=== PATIENT | male | born 1935 | race Caucasian/White ===

== ENCOUNTER 2016-09-15 02:28 | Inpatient (IN) | payer OTHER, MEDICAID ==
[2016-09-15] MEDS ORDERED: NS 500 ML IV ONE (02:34)
[2016-09-15] MEDS ORDERED: IPRATROPIUM/ALBUTEROL 3 ML DEYVIAL IH ONE (02:38)
--- NOTE | 2016-09-15 02:38 | EDPHY ---
H & P HPI/ROS: HPI CHIEF COMPLAINT: Right hip pain status post mechanical trip and fall HISTORY OF PRESENT ILLNESS: This patient very pleasant 80-year-old male significant past medical history of COPD on oxygen 2 L, hypertension, coronary artery disease, bypass surgery, presents emergency room after he sustained a mechanical trip and fall at [facility]. Patient states he was getting up to use the bathroom he stubbed his toe while walking this caused him to lose his balance and landed on his right hip. He now presents with right lateral hip pain. He is unable to raise his leg up. He describes the pain is 3 /10 right lateral hip achy. He also of note has had a cough that is productive in nature with yellow sputum for the past 3 days. Denies fever chest pain or shortness of breath. Denies head strike. Past Medical History: COPD, coronary artery disease, hypertension, peripheral vascular disease Past Surgical History: CABG Social History: Lives at [facility] Family History: Noncontributory ROS REVIEW OF SYSTEMS: A comprehensive 10 point review of systems is otherwise negative aside from elements mentioned in the history of present illness. Exam Constitutional triage nursing summary reviewed, vital signs reviewed, awake/ alert. Eyes normal conjunctivae and sclera, EOMI, PERRLA. HENT normal inspection, atraumatic, moist mucus membranes, no epistaxis, neck supple/ no meningismus, no raccoon eyes. Respiratory productive sounding cough, normal breath sounds, no respiratory distress Cardiovascular rate normal, regular rhythm, no murmur, no edema, distal pulses normal. Gastrointestinal soft, non-tender, no rebound, no guarding, normal bowel sounds, no distension, no pulsatile mass. Genitourinary no CVA tenderness. Musculoskeletal tender palpation over the right lateral hip, right leg is externally rotated and shortened, unable to lift it off the bed, distally warm extremity, good DP. no midline vertebral tenderness, no calf swelling, no tenderness of extremities, no meningismus, good pulses, neurovascularly intact. Skin pink, warm, & dry, no rash, skin atraumatic. Neurologic awake, alert and oriented x 3, AAOx3, moves all 4 extremities equally, motor intact, sensory intact, CN II-XII intact, normal cerebellar, normal vision, normal speech. Psychiatric normal mood/affect. Heme/Lymph/Immune no lymphadenopathy. Differential Diagnosis: Includes but is not limited to in a particular order right hip fracture, pelvis fracture, femur fracture, COPD, pneumonia, dehydration, electrolyte abnormality Medical Decision Making: Plan for this patient had an IV established. Get a preop screening EKG, blood work including coags, x-ray of the right hip, x-ray of the chest due to productive sounding cough. Patient be given a DuoNeb breathing treatment. Most likely this patient will need to be admitted due to right hip fracture. Re-evaluation: EKG interpretation by me on record in [employer] system. Impression time of EKG 2:47 a.m., this is sinus rhythm, rate of [address] depression seen in V4 V5 V6 otherwise nonischemic EKG. When compared to EKG on 01/10/2013 similar morphology. ED x-ray chest one view: I do not appreciate acute focal pneumonia. Image interpreted by myself ED x-ray: Right hip: this shows intratrochanteric femur fracture. image interpreted by myself. 0301: patient resting comfortably. X-ray reviewed do not appreciate focal pneumonia however COPD appearing lungs. Patient with a wet sounding bronchitic cough. Patient be given a DuoNeb breathing treatment here in the emergency room. IV Levaquin, I have ordered blood cultures. Also Solu-Medrol for wheezing and bronchitic cough. Patient has extensive COPD history. He is on 2 L nasal cannula which is oxygen baseline. Separate issue from COPD exacerbation is he has a right intratrochanteric hip fracture. He will be admitted for the intratrochanteric hip fracture and COPD. I spoke with the hospitalist service agrees to admit the patient. Patient be admitted to PCU. This time I will also consult and orthopedics. 0340: spoke with Dr. Barcenas with Orthopedics he is aware the patient be admitted to the hospitalist service and has most likely a small intertrochanteric right hip fracture. Reason for admission is COPD exacerbation as well as right hip fracture. CT scan is pending of the right hip at this time, To confirm there is a small intratrochanteric hip fracture it is difficult to see on x-ray. CT scan of the hip, right The results of the study are shows intratrochanteric hip fracture. The study was read by Dr. Rojo. I viewed the images myself on the PACS system. Source: Patient, EMS - Medical/Surgical History Hx Asthma: No Hx Chronic Respiratory Disease: Yes Hx Diabetes: No Hx Cardiac Disease: Yes Hx Renal Disease: No Hx Cirrhosis: No Hx Alcoholism: No Hx HIV/AIDS: No Hx Splenectomy or Spleen Trauma: No Other PMH: Ischemic Cardiomyopathy, CAD, HTN, COPD, Bipolar, depression, PVD, Gout, GI bleed, insomnia - Social History Smoking Status: Former smoker Constitutional: Initial Vital Signs Temperature (C) 37.4 C 09/15/16 02:30 Heart Rate 74 09/15/16 02:30 Respiratory Rate 18 09/15/16 02:30 Blood Pressure 149/61 H 09/15/16 02:30 O2 Sat (%) 87 L 09/15/16 02:30 O2 Delivery Mode Room Air O2 (L/minute) 2 Allergies/Adverse Reactions: levofloxacin Allergy (Verified 01/10/13 00:01) CHRISTOPHER [employer] Allergy (Uncoded 01/10/13 00:01) LEAH Allergy (Uncoded 01/10/13 00:01) Home Medications: Medication Instructions Recorded Acetaminophen [Tylenol 325mg (OTC)] 650 mg PO Q4 PRN 01/10/13 Aspirin [Aspirin 81mg (OTC)] 81 mg PO DAILY 01/10/13 Atorvastatin Calcium [Lipitor 40 40 mg PO DAILY 01/10/13 mg (RX)] Carvedilol [Coreg (RX)] 3.125 mg PO BID@08,16 01/10/13 Isosorbide Mononitrate [Imdur 30 30 mg PO DAILY 01/10/13 mg (RX)] Melatonin [Melatonin 3 MG (OTC)] 3 mg PO HS 01/10/13 Multivitamins [Tab-A-Aleksander] 1 each PO DAILY 01/10/13 Pantoprazole Sodium [Protonix 40mg 40 mg PO DAILY@1600 01/10/13 (RX)] QUETIAPINE FUMARATE [Seroquel Xr] 300 mg PO HS 01/10/13 Sertraline HCl [Zoloft] 25 mg PO DAILY 01/10/13 Furosemide [Lasix 20 MG (RX)] 20 mg PO DAILY 01/15/13 Hydrocodone Bit/Acetaminophen 1 tab PO Q6 PRN 01/17/13 [Vicodin 5/500] Oxygen-Air Delivery Systems HS 01/20/13 [OXYGEN] Valacyclovir HCl [Valtrex] 1,000 mg PO TID #21 tab 04/23/16 Clopidogrel Bisulfate [Plavix] mg PO 09/15/16 Medical Decision Making - Data Points Laboratory Results: Laboratory Results 09/15/16 02:35 09/15/16 02:35 09/15/16 09/15/16 09/15/16 02:35 02:35 02:35 WBC RBC Hgb Hct MCV MCH MCHC RDW Plt Count MPV Neut % (Auto) Lymph % (Auto) Mcleod % (Auto) Eos % (Auto) Baso % (Auto) Nucleat RBC Rel Count Absolute Neuts (auto) Absolute Lymphs (auto) Absolute Monos (auto) Absolute Eos (auto) Absolute Basos (auto) Absolute Nucleated RBC Immature Gran % Immature Gran # PT 15.0 SEC SEC (12.0-15.0) INR 1.18 H (0.83-1.16) APTT 32.0 SEC SEC (23.0-38.0) Sodium 137 mEq/L mEq/L (134-144) Potassium 3.2 mEq/L L mEq/L (3.5-5.2) Chloride 105 mEq/L mEq/L (97-110) Carbon Dioxide 18 mEq/l L mEq/l (22-31) Anion Gap 14 mEq/L mEq/L (8-16) BUN 31 mg/dL H mg/dL (7-23) Creatinine 1.6 mg/dL H mg/dL (0.7-1.3) Estimated GFR 42 Glucose 120 mg/dL H mg/dL (70-100) Calcium 8.8 mg/dL mg/dL (8.5-10.4) Troponin I 0.087 ng/mL H ng/mL (0-0.034) 09/15/16 02:35 WBC 10.24 10^3/uL H 10^3/uL (3.80-9.50) RBC 4.08 10^6/uL L 10^6/uL (4.40-6.38) Hgb 12.9 g/dL L g/dL (13.7-17.5) Hct 36.8 % L % (40.0-51.0) MCV 90.2 fL fL (81.5-99.8) MCH 31.6 pg pg (27.9-34.1) MCHC 35.1 g/dL g/dL (32.4-36.7) RDW 13.9 % % (11.5-15.2) Plt Count 223 10^3/uL 10^3/uL (150-400) MPV 9.7 fL fL (8.7-11.7) Neut % (Auto) 81.7 % H % (39.3-74.2) Lymph % (Auto) 8.5 % L % (15.0-45.0) Mcleod % (Auto) 8.5 % % (4.5-13.0) Eos % (Auto) 0.2 % L % (0.6-7.6) Baso % (Auto) 0.3 % % (0.3-1.7) Nucleat RBC Rel Count 0.0 % % (0.0-0.2) Absolute Neuts (auto) 8.37 10^3/uL H 10^3/uL (1.70-6.50) Absolute Lymphs (auto) 0.87 10^3/uL L 10^3/uL (1.00-3.00) Absolute Monos (auto) 0.87 10^3/uL H 10^3/uL (0.30-0.80) Absolute Eos (auto) 0.02 10^3/uL L 10^3/uL (0.03-0.40) Absolute Basos (auto) 0.03 10^3/uL 10^3/uL (0.02-0.10) Absolute Nucleated RBC 0.00 10^3/uL 10^3/uL (0-0.01) Immature Gran % 0.8 % % (0.0-1.1) Immature Gran # 0.08 10^3/uL 10^3/uL (0.00-0.10) PT INR APTT Sodium Potassium Chloride Carbon Dioxide Anion Gap BUN Creatinine Estimated GFR Glucose Calcium Troponin I Medications Given: Discontinued Medications Albuterol/Ipratropium (Duoneb) 3 ml IH EDNOW ONE Stop: 09/15/16 02:39 Last Admin: 09/15/16 03:10 Dose: 3 ml Sodium Chloride (Ns) 500 mls @ 0 mls/hr IV ONCE ONE PRN Reason: As Directed Stop: 09/15/16 02:35 Last Admin: 03/10/17 02:50 Dose: 500 mls Levofloxacin/Dextrose (Levaquin 750 Mg (Premix)) 150 mls @ 100 mls/hr IV EDNOW ONE PRN Reason: Protocol Stop: 09/15/16 04:29 Last Admin: 09/15/16 03:56 Dose: Not Given Ceftriaxone Sodium/Dextrose (Rocephin 1 Gm (Premix)) 50 mls @ 100 mls/hr IV EDNOW ONE PRN Reason: Protocol Stop: 09/15/16 04:15 Last Admin: 09/15/16 03:59 Dose: 50 mls Methylprednisolone Sodium Succinate (Solu-Medrol) 125 mg IVP EDNOW ONE Stop: 09/15/16 03:01 Last Admin: 09/15/16 03:45 Dose: 125 mg Departure - Departure Disposition: [facility] Inpatient Acute Clinical Impression: COPD exacerbation Hip fracture Qualifiers: Encounter type: initial encounter Fracture type: closed Laterality: right Qualified Code(s): S72.001A - Fracture of unspecified part of neck of right femur, initial encounter for closed fracture Condition: Fair
[2016-09-15 02:44] LABS: % IMMATURE GRANULYOCYTES 0.8 % (0.0-1.1); ABSOLUTE IMMATURE GRANULOCYTES 0.08 10^3/uL (0.00-0.10); ADD DIFF? NO; ADD MORPH? NO; ADD SCAN? NO; ATYPICAL LYMPHOCYTE FLAG 0 (0-99); FRAGMENT RBC FLAG 0 (0-99); HEMATOCRIT 36.8 % (40.0-51.0); HEMOGLOBIN 12.9 g/dL (13.7-17.5); LEFT SHIFT FLG 10 (0-99); LIPEMIA HEMOLYSIS FLAG 90 (0-99); MEAN CELL HEMOGLOBIN 31.6 pg (27.9-34.1); MEAN CELL HEMOGLOBIN CONCENTR. 35.1 g/dL (32.4-36.7); MEAN CELL VOLUME 90.2 fL (81.5-99.8); MEAN PLATELET VOLUME 9.7 fL (8.7-11.7); PLATELET CLUMPS FLAG 0 (0-99); PLATELET COUNT 223 10^3/uL (150-400); RED BLOOD CELL COUNT 4.08 10^6/uL (4.40-6.38); RED CELL DISTRIBUTION WIDTH 13.9 % (11.5-15.2)
--- NOTE | 2016-09-15 02:50 | CPEKG ---
Heart Rate: 69 RR Interval: 870 P-R Interval: 164 QRSD Interval: 106 QT Interval: 424 QTC Interval: 455 P [place]: 79 QRS [place]: 62 T Wave [place]: 47 EKG Severity - ABNORMAL ECG - EKG Impression: SINUS RHYTHM EKG Impression: LEFT ATRIAL ABNORMALITY EKG Impression: BORDERLINE ST DEPRESSION, LATERAL LEADS Preliminary Awaiting MD Review
[2016-09-15 02:53] LABS: INR 1.18 (0.83-1.16)
[2016-09-15 02:55] LABS: ANION GAP 14 mEq/L (8-16); CALCIUM 8.8 mg/dL (8.5-10.4); CARBON DIOXIDE 18 mEq/l (22-31); CHLORIDE 105 mEq/L (97-110); CREATININE 1.6 mg/dL (0.7-1.3); GLOMERULAR FILTRATION RATE 42; GLUCOSE 120 mg/dL (70-100); POTASSIUM 3.2 mEq/L (3.5-5.2); SODIUM 137 mEq/L (134-144)
[2016-09-15] MEDS ORDERED: methylPREDNISolone SOD SUCC 125 MG/2 ML VIAL IVP ONE (03:00)
[2016-09-15] MEDS ORDERED: PROMETHAZINE HCL 25 MG TAB PO PRN (03:14)
[2016-09-15] MEDS ORDERED: ALBUTEROL 3 ML DEYVIAL IH PRN (03:14)
[2016-09-15] MEDS ORDERED: HYDROmorphONE/DILAUDID 1 MG/ML SYR IVP PRN (03:14)
[2016-09-15] MEDS ORDERED: ONDANSETRON 4 MG/2 ML VIAL IVP PRN (03:14)
[2016-09-15] MEDS ORDERED: ONDANSETRON DISINTEGRATING 4 MG TAB PO PRN (03:14)
[2016-09-15] MEDS ORDERED: NS 1,000 ML IV SCH (03:15)
[2016-09-15 03:18] LABS: TROPONIN I 0.087 ng/mL (0-0.034)
[2016-09-15] MEDS ORDERED: PROTOCOL POTASSIUM 1 DOSE MISC PRN (03:19)
[2016-09-15] MEDS ORDERED: PROTOCOL MAGNESIUM 1 DOSE IV PRN (03:19)
[2016-09-15] MEDS ORDERED: AZITHROMYCIN IV 500 MG in D5W 250 ML IV ONE (03:46)
[2016-09-15] MEDS ORDERED: IPRATROPIUM/ALBUTEROL 3 ML DEYVIAL ONE (06:10)
[2016-09-15] MEDS: IPRATROPIUM/ALBUTEROL 3 ML DEYVIAL IH SCH ×4 (06:12→20:39)
[2016-09-15 06:18] LABS: % IMMATURE GRANULYOCYTES 0.7 % (0.0-1.1); ABSOLUTE IMMATURE GRANULOCYTES 0.06 10^3/uL (0.00-0.10); ADD DIFF? NO; ADD MORPH? NO; ADD SCAN? NO; ATYPICAL LYMPHOCYTE FLAG 0 (0-99); FRAGMENT RBC FLAG 0 (0-99); HEMATOCRIT 33.7 % (40.0-51.0); HEMOGLOBIN 11.7 g/dL (13.7-17.5); LEFT SHIFT FLG 20 (0-99); LIPEMIA HEMOLYSIS FLAG 90 (0-99); MEAN CELL HEMOGLOBIN 31.3 pg (27.9-34.1); MEAN CELL HEMOGLOBIN CONCENTR. 34.7 g/dL (32.4-36.7); MEAN CELL VOLUME 90.1 fL (81.5-99.8); MEAN PLATELET VOLUME 9.7 fL (8.7-11.7); PLATELET CLUMPS FLAG 10 (0-99); PLATELET COUNT 209 10^3/uL (150-400); RED BLOOD CELL COUNT 3.74 10^6/uL (4.40-6.38); RED CELL DISTRIBUTION WIDTH 13.7 % (11.5-15.2)
--- NOTE | 2016-09-15 06:19 | GHP ---
[f rep st] HISTORY AND PHYSICAL DATE OF ADMISSION: 09/15/2016 CHIEF COMPLAINT: Fall with right hip pain. HISTORY: This is an 80-year-old man, who was brought in by ambulance after suffering a mechanical f all at home. He notes that he stubbed his toe, then proceeded to fall, and landed on his right hip. Pain began immediately thereafter to the point where he is really unable to move his right leg. W hen he does not move the leg at all, the pain is much more mild. The patient otherwise notes that chloe sanchez has been dealing with a cough for the last 2-3 days. He notes the cough is also associated with s hortness of breath with even minimal exertion. He states when he coughs, he sometimes gets up what appears to be a milky colored sputum. He has had fevers as recently as yesterday. He denies any ch est pain or palpitations. He denies any leg swelling or pain prior to his injury. He has not been on oxygen at home for quite some time. He denies any issues with laying flat and denies any symptom s of PND. PAST MEDICAL HISTORY: Includes: 1. Coronary artery disease and history of NSTEMI. CHF with a prior ejection fraction of 40% to 45% . Unknown ejection fraction currently. 2. Valvular heart disease with moderate to severe MR, mild to moderate TR, and moderate pulmonary h ypertension. 3. COPD. 4. Chronic kidney disease with most recent baseline creatinine close to 1.8. 5. Hypertension. 6. Hyperlipidemia. 7. Peripheral vascular disease. 8. History of upper GI bleed. 9. Tophaceous gout. 10. History of DVT and PE. 11. Bipolar disorder. PAST SURGICAL HISTORY: Includes: 1. Three-vessel CABG. 2. Knee replacement. 3. Fem-fem bypass. SOCIAL HISTORY: The patient has been living in assisted living. He has a greater than 50 pack year smoking history and quit in 2012. He has 2 daughters. Denies significant alcohol use. No drug us e. REVIEW OF SYSTEMS: A 10-point review of systems obtained, negative except as per HPI. MEDICATIONS: Include: 1. Valacyclovir. 2. Sertraline. 3. Quetiapine. 4. Protonix. 5. Multivitamin. 6. Melatonin. 7. Imdur. 8. Vicodin. 9. Lasix. 10. Plavix. 11. Coreg. 12. Atorvastatin. 13. Aspirin. 14. Tylenol. ALLERGIES: Levaquin. PHYSICAL EXAMINATION: VITAL SIGNS: BP 156/78, heart rate 75, respiratory rate 16, O2 sats 93% on 2 L, temperature is 37.4. GENERAL APPEARANCE: Well-developed/well-nourished man. He is awake and a lert. He is in mild distress. EYES: Anicteric. HENT: Oropharynx clear. CARDIOVASCULAR: RRR, n o MRG. PULMONARY: Normal work of breathing. Lungs are clear to auscultation to anterior exam, but does have a wet cough present. GI: Soft, nontender, nondistended. EXTREMITIES: His right leg is externally rotated and shortened. He has inability to lift it off the bed likely secondary to pain . Pulses are intact and sensation is intact. SKIN: Warm, dry, well perfused. NEURO/PSYCH: Orien rajendra, appropriate, pleasant. CLINICAL DATA: Labs reviewed. Significant for white blood cell count 10.2, hematocrit 36.8, platel ets of 223, INR is 1.1. Chemistry is notable for a potassium of 3.2, BUN of 31, creatinine 1.6, glu cose 120, initial troponin is 0.087. Pelvic CT personally reviewed and interpreted shows an intertrochanteric fracture with foreshortenin g and anterior apex angulation. EKG personally reviewed and interpreted shows sinus rhythm. Borderline ST depressions noted in V4, V5, V6, fairly similar to prior EKG. Chest x-ray, personally reviewed and interpreted ahead of radiology interpretation : Heart size shira ears normal. There is evidence of prior sternal sternotomy, suspect mild pulmonary edema, and left lower lobe infiltrate. ASSESSMENT AND PLAN: This is an 80-year-old man with multiple medical issues including coronary art inge disease, congestive heart failure, chronic kidney disease, presenting status post mechanical fal l with intertrochanteric femur fracture, as well as acute hypoxic respiratory failure, and suspected pneumonia. 1. Intertrochanteric femur fracture. Orthopedic surgery has been consulted. The patient likely wi ll need surgical intervention though he does have other active medical issues currently, so if surge ry could be delayed for 24-48 hours to improve his pulmonary status, that would be preferable. We a re currently awaiting ortho input. Patient n.p.o. for now. His pain is relatively well controlled on current regimen. He will be kept nonweightbearing for now. 2. Acute hypoxic respiratory failure. The patient saturating initially 87% on room air though he i s currently improved on 2 L. The patient states that he has not required home oxygen since immediat todd post his CABG in 2012. He has been complaining of cough and does have a suggestion of possible left lower lobe infiltrate on chest x-ray by my read. Also, with chronic obstructive pulmonary dise ase, there is suspicion for some acute chronic obstructive pulmonary disease exacerbation. I do not have high suspicion for other etiology contributing such as pulmonary embolism. Certainly could ledezma ve some component of congestive heart failure exacerbation, however, which will be discussed below, as well. 3. Pneumonia. Evidence of likely left lower lobe pneumonia on chest x-ray. Again, Pulmonology pretty d is pending. He has had a significant cough with change in his usual sputum production with associ ated leukocytosis and fever at home. He has been started on ceftriaxone and azithromycin in the ER and will continue for now. Blood cultures have been obtained. The patient is not septic appearing and is hemodynamically stable. 4. Chronic obstructive pulmonary disease with acute exacerbation in the setting of suspected pneumo zaynab as above. He does have poor air movement, and occasional wheeze. Will schedule DuoNeb, as well as p.r.n. albuterol nebs. He has received IV methylprednisolone x1 in the emergency room and we wi ll hold off on further steroids for now given the likely need for surgical intervention in the near future. Should his respiratory status decline, however, these will be added. 5. Chronic, likely diastolic heart failure. Patient with a previous ejection fraction of 40% to 45 %, but repeat echo post CABG is not currently available to me. He does have some suggestion of leon estive heart failure exacerbation on exam with pulmonary edema noted on chest x-ray. We will monito r inputs and outputs for now. Will hold off on Lasix for the time being as I think volume overload is only mildly contributing to his current presentation and he does have BUN elevation beyond his us ual level at this point. We will repeat an echocardiogram in the morning for further evaluation. 6. Chronic kidney disease. Last labs available to me were in 2012 around the time of patient's CAB G. At that time, his baseline creatinine was around 1.8 to 2. He presents with a creatinine of 1.6 , which is likely near his current baseline, though not 100% certain of that. He appears for the mo st part euvolemic on exam. Will hold off on diuresis for the time being, trending his creatinine. I will attempt to obtain more recent labs from outpatient records. 7. Elevated troponin in the indeterminate range and without complaints of chest pain or clear ische rhonda changes on EKG. He does have perhaps slightly more pronounced ST depressions on his EKG, but th justice remain minimal and unclear if they are clinically significant. I will also get a repeat EKG. 8. Other prior medical problems that include peripheral vascular disease, history of gastrointestin al bleed, hypertension, hyperlipidemia, gout, history of deep venous thrombosis/pulmonary embolism, history of bipolar, outpatient medications will be continued. DISPOSITION: Inpatient status. Patient has multiple active comorbid conditions placing him at high risk and will require surgical intervention, but also in the setting of his other active medical is sues place him at high risk for surgical complications. The patient is new to my care. Old records reviewed, summarized as per HPI, and past medical histor y. Care plan has been reviewed with the ER physician including plans for orthopedic consultation an d treatment of pneumonia. /[id number]/MODL
[2016-09-15 06:45] LABS: ANION GAP 10 mEq/L (8-16); CALCIUM 8.2 mg/dL (8.5-10.4); CARBON DIOXIDE 19 mEq/l (22-31); CHLORIDE 107 mEq/L (97-110); CREATININE 1.4 mg/dL (0.7-1.3); GLOMERULAR FILTRATION RATE 49; GLUCOSE 155 mg/dL (70-100); POTASSIUM 3.1 mEq/L (3.5-5.2); SODIUM 136 mEq/L (134-144)
--- NOTE | 2016-09-15 09:01 | CPEKG ---
Heart Rate: 62 RR Interval: 968 P-R Interval: 188 QRSD Interval: 106 QT Interval: 464 QTC Interval: 472 P [place]: 71 QRS [place]: 54 T Wave [place]: 74 EKG Severity - NORMAL ECG - EKG Impression: SINUS RHYTHM Preliminary Awaiting MD Review
[2016-09-15] MEDS: POTASSIUM Cl (KCl) 100 ML IV SCH ×4 (09:22→13:56)
[2016-09-15] MEDS ORDERED: CEFTRIAXONE 1 GM/DEXTROSE/50 ML BAG IV ONE (09:36)
[2016-09-15 13:31] LABS: COLOR YELLOW; LEUKOCYTE ESTERASE,URINE NEGATIVE (NEGATIVE); NITRITE,URINE NEGATIVE (NEGATIVE)
[2016-09-15] MEDS ORDERED: ACETAMINOPHEN PO PRN (13:33)
[2016-09-15] MEDS ORDERED: HYDROCODONE BIT PO PRN (13:33)
[2016-09-15 13:35] LABS: BACTERIA TRACE /hpf (NONE SEEN)
--- NOTE | 2016-09-15 13:41 | HOSPPROG ---
Hospitalist Progress Note Assessment/Plan: # R hip fx - needs operative fixation despite significant comorbidities and marginal functional status - would like to see echo prior to surgery - cont BB through surgery # dyspnea/possible pna/hypoxia - agree with tx for pna - rocephin/azith, BDs - PE seems less likely # CHF, last EF 45%; compensated - cont coreg, no edwin with CKD - recheck echo # CAD s/p cabg; indet trop - doubt acs, likely demand - hold plavix, restart soon - cont statin, BB # hypoK - replete, recheck # CKD - at baseline # gout - allopurinol # FCFT # vte ppx - will need post-op ## new pt to me cxr personally reviewed, chart reviewed Subjective: ongoing hip pain Objective: Vital Signs Temp Pulse Resp BP Pulse Ox 36.6 C 62 18 128/57 H 93 09/15/16 10:51 09/15/16 10:51 09/15/16 10:51 09/15/16 10:51 09/15/16 10:51 Laboratory Results 09/15/16 06:00 09/15/16 06:00 09/14/16 09/15/16 09/16/16 05:59 05:59 05:59 Output Total 900 Balance -900 PT 15.0 SEC (12.0-15.0) 09/15/16 02:35 INR 1.18 (0.83-1.16) H 09/15/16 02:35 - Physical Exam Constitutional: no apparent distress, appears nourished Cardiovascular: regular rate and rhythym, no murmur, rub, or gallop Respiratory: no respiratory distress, no rales or rhonchi, clear to auscultation Gastrointestinal: normoactive bowel sounds, soft, non-tender abdomen, no palpable masses ICD10 Worksheet Patient Problems: Problems Problem Status Onset CHF - Congestive heart failure Active COPD exacerbation Acute Hip fracture Acute
[2016-09-15 13:51] LABS: POTASSIUM 3.9 mEq/L (3.5-5.2)
--- NOTE | 2016-09-15 14:00 | ECHO ---
[id number] + + [address] : : [place] [address] : : [phone] + Adult Echocardiographic Report + -------+ :Name: VIRAL VICTORIA JStudy Date: 09/15/2016 08:41 AM : : Hospital Admission Number: [id number] Enoch n: ER12: :: 1935 Gender: Male Height: 70 in : :Age: 80 yrs Race: WH Weight: 163 lb : :Reason For Study: Eval LV Fx : : BSA: 1.9 meters 2 : :History: SOB, Hx of CABG : + -------+ MMode/2D Measurements \T\ Calculations IVSd: 0.91 cm LVIDd: 4.7 cm FS: 35.4 % MV Diam: 3.1 cm LVPWd: 1.2 cm LVIDs: 3.1 cm EDV(Teich): 104.4 ml ESV(Teich): 36.7 ml EF(Teich): 64.8 % Ao root diam: 3.4 cm LVOT diam: 2.1 cm ACS: 2.3 cm LVOT area: 3.5 cm2 Normal Measurement Values: + + :LVIDd (3.5-5.7cm) IVSd (0.6-1.1cm) LVPWd (0.6-1.1cm) Aortic Root (2.0-3.7cm)Left Atrium (1.5-4.0cm): :LV Vol(d) (76-115ml) LV Vol(s) (29-48ml) Ejec Fraction (50-65%)PV Umang (0.6- 1.2m/s) TV Umang (0.4-1.0m/s) : :MV E Umang (0.8-1.0m/s)MV A Umang (0.3-1.0m/s)LVOT Umang (0.7-1.2m/s) Asc Ao Umang ( 0.9-1.8m/s) : + + Doppler Measurements \T\ Calculations MV E max umang: MV V2 max: Ao V2 max: LV V1 max: 120.0 cm/sec 150.0 cm/sec 121.0 cm/sec 65.4 cm/sec MV A max umang: MV max P.0 mmHg Ao max P.9 mmHgLV V1 max P.8 cm/sec MV V2 mean: Ao mean P.7 mmHg MV E/A: 1.3 74.7 cm/sec 4.0 mmHg LV V1 mean PG: MV mean P.0 mmHg Ao V2 mean: 1.0 mmHg MV V2 VTI: 46.5 cm 97.2 cm/sec LV V1 mean: MV area (1 diam): Ao V2 VTI: 31.1 cm 49.3 cm/sec LV V1 VTI: 7.5 cm2 WILLY(I,D): 2.3 cm2 20.8 cm MVA(VTI): 1.5 cm2 WILLY(V,D): 1.9 cm2 MV Flow area(1diam): 7.5 cm2 MR max umnag: MR(RF 1 diam): SV(MV 1 diam): PA V2 max: 544.0 cm/sec 12.1 % 351.0 ml 61.1 cm/sec MR max PG: SI(MV 1 diam): PA max P.4 mmHg 1.5 mmHg 183.4 ml/m2 SV(LVOT): 72.0 ml TR max umang: RF(MV,Ao)(1 diam): 269.0 cm/sec 0.20 TR max PG: RF(MV,LVOT)(1diam): 28.9 mmHg 0.79 RAP systole: 5.0 mmHg RVSP(TR): 33.9 mmHg Left Ventricle The left ventricle is normal in size. There is normal left ventricular wall thickness. The left ventricular ejection fraction is normal. There is Doppler evidence for diastolic dysfunction. Ejection Fraction = 65%. The left ventricular wall motion is normal. Right Ventricle The right ventricle is normal in size and function. Atria The left atrial size is normal. Right atrial size is normal. Mitral Valve The mitral valve is normal in structure and function. There is no mitral valve stenosis. There is mild to moderate mitral regurgitation. Tricuspid Valve Normal tricuspid valve. There is trace to mild tricuspid regurgitation. Right ventricular systolic pressure is normal. Aortic Valve The aortic valve is trileaflet. The aortic valve opens well. There is no aortic stenosis. There is no aortic insufficiency. Pulmonic Valve The pulmonic valve is normal in structure and function. There is no pulmonic valvular regurgitation. Great Vessels The aortic root is normal size. Pericardium/Pleural There is no pericardial effusion. Conclusion A complete two-dimensional transthoracic echocardiogram was performed (2D, M-mode, Doppler and color flow Doppler). The left ventricular ejection fraction is normal. There is Doppler evidence for diastolic dysfunction. Ejection Fraction = 65%. The left ventricular wall motion is normal. The right ventricle is normal in size and function. The mitral valve is normal in structure and function. There is mild to moderate mitral regurgitation. Normal tricuspid valve There is trace to mild tricuspid regurgitation. Right ventricular systolic pressure is normal. The aortic valve is trileaflet. The aortic valve opens well. The pulmonic valve is normal in structure and function. There is no pericardial effusion. Final Reading Physician: Raman Prado signed on 09/15/2016 01:58 PM Ordering Physician: Génesis Nesbitt Performed By: Gerson Singh, CS
[2016-09-15] MEDS ORDERED: HYDROCODONE/APAP 5/325 TAB PO PRN (15:16)
[2016-09-15] MEDS ORDERED: ceFAZolin 2 GM/DEXTROSE 100 ML IV ONE (17:05)
[2016-09-15] MEDS ORDERED: MIDAZOLAM 2 MG/2 ML VIAL ONE (17:23)
[2016-09-15] MEDS ORDERED: DEXAMETHASONE 4 MG/ML VIAL ONE (17:29)
[2016-09-15] MEDS ORDERED: LIDOCAINE 2% 100 MG/5 ML SYR ONE (17:29)
[2016-09-15] MEDS ORDERED: ONDANSETRON 4 MG/2 ML VIAL ONE (17:29)
[2016-09-15] MEDS ORDERED: fentaNYL 100 MCG/2 ML INJ ONE (17:30)
[2016-09-15] MEDS ORDERED: PROPOFOL 200 MG/20 ML VIAL ONE (17:32)
[2016-09-15] MEDS ORDERED: BUPIVACAINE 0.5% 30 ML SDV ONE (17:41)
--- NOTE | 2016-09-15 18:37 | GCON ---
[f rep st] CONSULTATION ORTHOPEDIC CONSULTATION. REASON FOR CONSULTATION: Consultation from the emergency department and hospitalist service, Dr. Pola Nesbitt, for evaluation of a right IT femur fracture. HISTORY OF PRESENT ILLNESS: 80-year-old gentleman who sustained a mechanical fall early this gretchen g. Was unable to bear weight. Brought into the emergency room. Evaluated. Found to have a right intertrochanteric femur fracture. The patient was admitted to the hospitalist service. He has a tr oponin leak. He is complaining of shortness of breath. He appears to have an early form of pneumon ia. PAST MEDICAL HISTORY: Includes coronary artery disease, congestive heart failure, valvular heart di sease, COPD, chronic kidney disease, hypertension, hyperlipidemia, peripheral vascular disease, hist ory of GI bleed, tophaceous gout, history of DVT and PE, bipolar disorder. PAST SURGICAL HISTORY: Includes CABG, knee replacement, fem-fem bypass as well as left DHS. SOCIAL HISTORY: Patient lives in assisted living. He is a big smoker who quit in the last couple o f years. PHYSICAL EXAMINATION: GENERAL: Patient is in no acute distress. EXTREMITIES EXAM: The right lowe r extremity is examined. It is held short and flexed, externally rotated. He is neurovascularly in tact. LAB DATA: X-rays reviewed which show the mildly displaced right intertrochanteric femur fracture. ASSESSMENT AND PLAN: The patient is an 80-year-old gentleman with a right intertrochanteric femur f racture. Discussed operative and nonoperative interventions with the patient. Recommended procedur e is operative intervention and operative fixation. Risks and benefits were discussed with the dandy ent and informed consent was obtained. Plan will be to proceed with this as soon as the patient is cleared from the medicine service. /[id number]/MODL
[2016-09-15] MEDS ORDERED: D5W 1/2 NS W/ 20 KCl/L 1,000 ML IV SCH (18:45)
--- NOTE | 2016-09-15 18:47 | POSTOPPROG ---
Post Op Note Date of Operation: 09/15/16 Surgeon: Zachary Bracenas Anesthesiologist: Zehra Anesthesia: GET(General Endotracheal) Pre-op Diagnosis: R IT femur fx Post-op Diagnosis: same Indication: displaced IT fx R femur Procedure: R TFN femur Findings: IT fx Inf/Abcess present in the surg proc area at time of surgery?: No EBL: 50-100
--- NOTE | 2016-09-15 19:52 | GOP ---
[f rep st] OPERATIVE REPORT DATE OF OPERATION: 09/15/2016 SURGEON: Miya Barcenas MD DIRECTOR ACCOUNT MANAGEMENT: None. ANESTHESIA: General. PREOPERATIVE DIAGNOSIS: Right intertrochanteric femur fracture. POSTOPERATIVE DIAGNOSIS: Right intertrochanteric femur fracture. PROCEDURE PERFORMED: FINDINGS: DESCRIPTION OF PROCEDURE: The patient was identified in the preoperative holding area. The lower e xtremity was marked. He was then brought back to the operating room. After induction of anesthesia , he was positioned on the fracture table. The patient was then prepped and draped in the usual mat rile fashion. C-arm fluoroscopy was used to get firm reduction. A guidewire was placed in the tip of the greater trochanter, confirmed on AP and lateral C-arm fluoroscopy. This was reamed. An 11 m m short Synthes TFN nail was placed. A guidepin was then run up center-center to the femoral head a nd it measured 100 mm. We then placed a 100 mm helical screw without difficulty. Placed a 38 mm di stal cross-lock. Patient's incisions were copiously irrigated and closed in layers. The patient wa s awakened and moved to the PACU in good condition with a well-perfused limb. The plan is to make the patient weightbearing as tolerated. PROCEDURE: Right trochanteric femoral nail, short, to the right femur. INDICATIONS FOR PROCEDURE: The patient is an 80-year-old gentleman who sustained a right displaced intertrochanteric femur fracture. Risks and benefits were explained to the patient. Informed conse nt was obtained. /[id number]/MODL
[2016-09-15] MEDS ORDERED: QUETIAPINE FUMARATE 300 MG PO SCH (21:00)
[2016-09-15] MEDS: QUEtiapine FUMARATE 300 MG TAB PO SCH (21:56)
[2016-09-15] MEDS: MELATONIN 3 MG TAB PO SCH (21:56)
[2016-09-15] MEDS: CARVEDILOL 6.25 MG TAB PO SCH (21:56)
[2016-09-16 05:13] LABS: % IMMATURE GRANULYOCYTES 0.9 % (0.0-1.1); ADD DIFF? NO; ADD MORPH? NO; ADD SCAN? NO; ATYPICAL LYMPHOCYTE FLAG 10 (0-99); FRAGMENT RBC FLAG 0 (0-99); HEMATOCRIT 35.5 % (40.0-51.0); LEFT SHIFT FLG 10 (0-99); LIPEMIA HEMOLYSIS FLAG 90 (0-99); MEAN CELL HEMOGLOBIN 30.8 pg (27.9-34.1); MEAN CELL HEMOGLOBIN CONCENTR. 33.8 g/dL (32.4-36.7); MEAN PLATELET VOLUME 10.1 fL (8.7-11.7); PLATELET CLUMPS FLAG 0 (0-99); PLATELET COUNT 239 10^3/uL (150-400); RED CELL DISTRIBUTION WIDTH 13.7 % (11.5-15.2)
[2016-09-16] MEDS: IPRATROPIUM/ALBUTEROL 3 ML DEYVIAL IH SCH ×4 (05:14→21:03)
[2016-09-16 05:27] LABS: ANION GAP 11 mEq/L (8-16); CALCIUM 8.4 mg/dL (8.5-10.4); CARBON DIOXIDE 17 mEq/l (22-31); CHLORIDE 111 mEq/L (97-110); CREATININE 1.1 mg/dL (0.7-1.3); GLOMERULAR FILTRATION RATE > 60; GLUCOSE 171 mg/dL (70-100); MAGNESIUM 2.2 mg/dL (1.6-2.3); POTASSIUM 3.8 mEq/L (3.5-5.2); SODIUM 139 mEq/L (134-144)
[2016-09-16] MEDS ORDERED: AZITHROMYCIN IV 500 MG in D5W 250 ML IV SCH ×2 (06:00→09:00)
[2016-09-16] MEDS: AZITHROMYCIN IV 500 MG in D5W 250 ML IV SCH (06:25)
[2016-09-16] MEDS: ATORVASTATIN CALCIUM 20 MG TAB PO SCH (09:02)
[2016-09-16] MEDS: SERTRALINE HCL 25 MG TAB PO SCH (09:03)
[2016-09-16] MEDS: ENOXAPARIN 40 MG/0.4 ML SYR SC SCH ×2 (09:03→10:16)
[2016-09-16] MEDS: ALLOPURINOL 100 MG TAB PO SCH (09:03)
[2016-09-16] MEDS: CARVEDILOL 6.25 MG TAB PO SCH ×2 (10:15→18:17)
--- NOTE | 2016-09-16 10:22 | HOSPPROG ---
Hospitalist Progress Note Assessment/Plan: # R hip fx s/p ORIF 09/15 Dr Barcenas # dyspnea/possible pna/hypoxia - repeat CXR today - cont rocephin/azith, BDs - PE seems less likely # CHF, last EF 45%; compensated - cont coreg, no edwin with CKD # CAD s/p cabg; indet trop - doubt acs, likely demand - plavix restarted - cont statin, BB # hypoK - resolved # CKD - at baseline # gout - allopurinol # FCFT # vte ppx - hold lovenox, will use plavix which seems reasonable ## op note reviewed pelvic XR personally reviewed Subjective: s/p ORIF; denies CP, has some ongoing SOB that seems slightly better Objective: Vital Signs Temp Pulse Resp BP Pulse Ox 36.3 C 55 L 14 112/55 L 94 09/16/16 07:33 09/16/16 07:33 09/16/16 07:33 09/16/16 07:33 09/16/16 09:02 Laboratory Results 09/16/16 04:38 09/16/16 04:38 09/15/16 09/16/16 09/17/16 05:59 05:59 06:59 Intake Total 2920 200 Output Total 2325 Balance 595 200 PT 15.0 SEC (12.0-15.0) 09/15/16 02:35 INR 1.18 (0.83-1.16) H 09/15/16 02:35 Vitals reviewed Pleasant, no acute distress Regular rate and rhythm, no murmurs rubs or gallops; Sternotomy scar No respiratory distress, lungs clear to auscultation bilaterally, no wheezes or rales Abdomen soft nontender, nondistended, no hepatosplenomegaly right hip with gauze dressing, clean dry and intact ICD10 Worksheet Patient Problems: Problems Problem Status Onset CHF - Congestive heart failure Active COPD exacerbation Acute Hip fracture Acute
[2016-09-16] MEDS: CLOPIDOGREL BISULFATE 75 MG TAB PO SCH (10:34)
[2016-09-16] MEDS ORDERED: POTASSIUM CL 10 MEQ TAB PO ONE ×2 (10:51→21:06)
[2016-09-16] MEDS: ACETAMINOPHEN 325 MG TAB PO PRN ×2 (13:53→20:59)
[2016-09-16 18:30] LABS: POTASSIUM 3.9 mEq/L (3.5-5.2)
[2016-09-16] MEDS: MELATONIN 3 MG TAB PO SCH (20:51)
[2016-09-16] MEDS: oxyCODONE IR 5 MG TAB PO PRN (21:00)
[2016-09-16] MEDS: QUEtiapine FUMARATE 300 MG TAB PO SCH (21:00)
[2016-09-17] MEDS: IPRATROPIUM/ALBUTEROL 3 ML DEYVIAL IH SCH ×4 (05:12→20:10)
[2016-09-17 05:44] LABS: ADD DIFF? NO; ADD MORPH? NO; ADD SCAN? NO; ATYPICAL LYMPHOCYTE FLAG 20 (0-99); FRAGMENT RBC FLAG 0 (0-99); HEMATOCRIT 33.9 % (40.0-51.0); HEMOGLOBIN 11.5 g/dL (13.7-17.5); LEFT SHIFT FLG 10 (0-99); LIPEMIA HEMOLYSIS FLAG 90 (0-99); MEAN CELL HEMOGLOBIN CONCENTR. 33.9 g/dL (32.4-36.7); MEAN CELL VOLUME 91.4 fL (81.5-99.8); PLATELET CLUMPS FLAG 0 (0-99); PLATELET COUNT 249 10^3/uL (150-400); RED BLOOD CELL COUNT 3.71 10^6/uL (4.40-6.38); RED CELL DISTRIBUTION WIDTH 13.9 % (11.5-15.2)
[2016-09-17 06:02] LABS: ANION GAP 9 mEq/L (8-16); CALCIUM 8.6 mg/dL (8.5-10.4); CARBON DIOXIDE 21 mEq/l (22-31); CHLORIDE 110 mEq/L (97-110); CREATININE 1.2 mg/dL (0.7-1.3); GLOMERULAR FILTRATION RATE 58; GLUCOSE 95 mg/dL (70-100); MAGNESIUM 2.3 mg/dL (1.6-2.3); POTASSIUM 3.9 mEq/L (3.5-5.2); SODIUM 140 mEq/L (134-144)
[2016-09-17] MEDS: AZITHROMYCIN IV 500 MG in D5W 250 ML IV SCH (06:16)
[2016-09-17] MEDS ORDERED: POTASSIUM CL 10 MEQ TAB PO ONE (07:48)
[2016-09-17] MEDS: ATORVASTATIN CALCIUM 20 MG TAB PO SCH (08:38)
[2016-09-17] MEDS: CLOPIDOGREL BISULFATE 75 MG TAB PO SCH (08:38)
[2016-09-17] MEDS: CARVEDILOL 6.25 MG TAB PO SCH ×2 (08:38→18:09)
[2016-09-17] MEDS: ALLOPURINOL 100 MG TAB PO SCH (08:39)
[2016-09-17] MEDS: SERTRALINE HCL 25 MG TAB PO SCH (08:39)
--- NOTE | 2016-09-17 09:46 | SOAPPROG ---
SOAP Progress Note Assessment/Plan: Assessment: s/p IMN R femur for IT fx POD1 doing well mild pain working with PT rec SNF Plan: 09/17/16 09:45 Objective: Vital Signs Temp Pulse Resp BP Pulse Ox 36.5 C 66 19 121/66 H 93 09/17/16 07:58 09/17/16 07:58 09/17/16 07:58 09/17/16 07:58 09/17/16 07:58 Laboratory Results 09/17/16 05:31 09/17/16 05:31 09/16/16 09/17/16 09/18/16 04:59 05:59 05:59 Intake Total Output Total Balance PT 15.0 SEC (12.0-15.0) 09/15/16 02:35 INR 1.18 (0.83-1.16) H 09/15/16 02:35 ICD10 Worksheet Patient Problems: Problems Problem Status Onset COPD exacerbation Acute Hip fracture Acute CHF - Congestive heart failure Active
--- NOTE | 2016-09-17 09:47 | SOAPPROG ---
SOAP Progress Note Assessment/Plan: Assessment: s/p IMN R femur for IT fx POD2 doing well mild pain working with PT he is WBAT rec SNF f/u [facility] 09/28/16 Plan: 09/17/16 09:45 09/17/16 09:46 Objective: Vital Signs Temp Pulse Resp BP Pulse Ox 36.5 C 66 19 121/66 H 93 09/17/16 07:58 09/17/16 07:58 09/17/16 07:58 09/17/16 07:58 09/17/16 07:58 Laboratory Results 09/17/16 05:31 09/17/16 05:31 09/16/16 09/17/16 09/18/16 04:59 05:59 05:59 Intake Total Output Total Balance PT 15.0 SEC (12.0-15.0) 09/15/16 02:35 INR 1.18 (0.83-1.16) H 09/15/16 02:35 ICD10 Worksheet Patient Problems: Problems Problem Status Onset COPD exacerbation Acute Hip fracture Acute CHF - Congestive heart failure Active
[2016-09-17] MEDS: oxyCODONE IR 5 MG TAB PO PRN ×3 (10:10→19:55)
[2016-09-17] MEDS: ACETAMINOPHEN 325 MG TAB PO PRN ×2 (10:10→16:27)
--- NOTE | 2016-09-17 11:53 | HOSPPROG ---
Hospitalist Progress Note Assessment/Plan: # R hip fx s/p ORIF 09/15 Dr Barcenas # dyspnea/possible pna/hypoxia - given ongoing dyspnea/hypoxia, will check CTA to eval PE - I think the risk of missing a PE outweighs the risk of contrast - cont rocephin/azith, BDs # CHF, EF while here normal; mild pleural effusions - cont coreg, no edwin with CKD # CAD s/p cabg; indet trop - doubt acs, likely demand - plavix restarted - cont statin, BB # hypoK - resolved # CKD - at baseline # gout - allopurinol # FCFT # vte ppx - will restart loveonx, low dose ## high risk given ongoing dyspnea Subjective: still SOB with ambulation; coughing Objective: Vital Signs Temp Pulse Resp BP Pulse Ox 36.5 C 57 L 22 H 121/66 H 94 09/17/16 07:58 09/17/16 10:47 09/17/16 10:47 09/17/16 07:58 09/17/16 10:47 Laboratory Results 09/17/16 05:31 09/17/16 05:31 09/16/16 09/17/16 09/18/16 04:59 05:59 05:59 Intake Total Output Total Balance PT 15.0 SEC (12.0-15.0) 09/15/16 02:35 INR 1.18 (0.83-1.16) H 09/15/16 02:35 - Physical Exam Constitutional: no apparent distress, appears nourished Cardiovascular: regular rate and rhythym, no murmur, rub, or gallop Respiratory: no respiratory distress, no rales or rhonchi, clear to auscultation Gastrointestinal: normoactive bowel sounds, soft, non-tender abdomen, no palpable masses ICD10 Worksheet Patient Problems: Problems Problem Status Onset CHF - Congestive heart failure Active COPD exacerbation Acute Hip fracture Acute
[2016-09-17] MEDS ORDERED: ENOXAPARIN 30 MG/0.3 ML SYR SC SCH (12:00)
[2016-09-17] MEDS: ENOXAPARIN 40 MG/0.4 ML SYR SC SCH (12:56)
[2016-09-17] MEDS ORDERED: IOPAMIDOL (ISOVUE-300) 100 ML BTL IV ONE (12:56)
[2016-09-17] MEDS: guaiFENesin 600 MG TAB.ER PO SCH (19:54)
[2016-09-17] MEDS: QUEtiapine FUMARATE 300 MG TAB PO SCH (19:55)
[2016-09-17] MEDS: MELATONIN 3 MG TAB PO SCH (21:29)
[2016-09-18] MEDS: oxyCODONE IR 5 MG TAB PO PRN (04:57)
[2016-09-18] MEDS: IPRATROPIUM/ALBUTEROL 3 ML DEYVIAL IH SCH ×4 (05:01→22:34)
[2016-09-18 05:18] LABS: ADD DIFF? YES; ADD MORPH? NO; ADD SCAN? NO; ATYPICAL LYMPHOCYTE FLAG 50 (0-99); FRAGMENT RBC FLAG 0 (0-99); HEMATOCRIT 37.7 % (40.0-51.0); HEMOGLOBIN 12.7 g/dL (13.7-17.5); LEFT SHIFT FLG 20 (0-99); LIPEMIA HEMOLYSIS FLAG 80 (0-99); MEAN CELL HEMOGLOBIN 30.8 pg (27.9-34.1); MEAN CELL HEMOGLOBIN CONCENTR. 33.7 g/dL (32.4-36.7); MEAN CELL VOLUME 91.5 fL (81.5-99.8); MEAN PLATELET VOLUME 9.9 fL (8.7-11.7); PLATELET CLUMPS FLAG 0 (0-99); PLATELET COUNT 310 10^3/uL (150-400); RED BLOOD CELL COUNT 4.12 10^6/uL (4.40-6.38); RED CELL DISTRIBUTION WIDTH 14.1 % (11.5-15.2)
[2016-09-18 05:31] LABS: ANION GAP 9 mEq/L (8-16); CALCIUM 8.5 mg/dL (8.5-10.4); CARBON DIOXIDE 17 mEq/l (22-31); CHLORIDE 108 mEq/L (97-110); CREATININE 1.2 mg/dL (0.7-1.3); GLOMERULAR FILTRATION RATE 58; GLUCOSE 93 mg/dL (70-100); MAGNESIUM 1.9 mg/dL (1.6-2.3); POTASSIUM 4.4 mEq/L (3.5-5.2); SODIUM 134 mEq/L (134-144)
[2016-09-18] MEDS: AZITHROMYCIN IV 500 MG in D5W 250 ML IV SCH (05:51)
[2016-09-18 06:35] LABS: PLATELET ESTIMATE ADEQUATE (ADEQ)
[2016-09-18] MEDS: CARVEDILOL 6.25 MG TAB PO SCH ×2 (10:00→18:31)
[2016-09-18] MEDS: CLOPIDOGREL BISULFATE 75 MG TAB PO SCH (10:02)
[2016-09-18] MEDS: guaiFENesin 600 MG TAB.ER PO SCH ×2 (10:02→20:44)
[2016-09-18] MEDS: SERTRALINE HCL 25 MG TAB PO SCH (10:02)
[2016-09-18] MEDS: ATORVASTATIN CALCIUM 20 MG TAB PO SCH (10:02)
[2016-09-18] MEDS: ALLOPURINOL 100 MG TAB PO SCH (10:02)
[2016-09-18] MEDS: ENOXAPARIN 40 MG/0.4 ML SYR SC SCH (10:02)
--- NOTE | 2016-09-18 12:55 | HOSPPROG ---
Hospitalist Progress Note Assessment/Plan: Patient 80-year-old male who had a mechanical fall at home. He landed on his right hip. Was noted to have an intertrochanteric femur fracture. Today is my 1st encounter with the patient. Chart reviewed. # R hip fx s/p ORIF with Dr Barcenas # dyspnea/possible pna/COPD/hypoxia - - cont rocephin/azith, BDs -CTA negative for PE -has extensive mucus plugging -reviewed his care with Dr Cevallos/ recommended steroids -reviewed this with DR Barcenas/ not optimal due to recent surgery, but he is ok with this -patient has hx of copd/ smoking # Urinary retention * -RN had to straight cath, 1 liter of retained urine * -most likely from narcotics # CHF, EF while here normal; mild pleural effusions - cont coreg, no edwin with CKD -echo shows diastolic dysfunction with stable EF # gait instability: PT and OT # CAD s/p cabg; indeterminate trop - likely demand ischemia - plavix restarted - cont statin, BB # hypoK - resolved # CKD - at baseline # gout - allopurinol # vte ppx -Lovenox # plan: will need another midnight stay/ will see if his O2 requirements decrease Subjective: Ty c/o right hip pain with coughing bouts. Objective: Vital Signs Temp Pulse Resp BP Pulse Ox 37 C 64 20 119/59 L 91 L 09/18/16 11:38 09/18/16 11:38 09/18/16 11:38 09/18/16 11:38 09/18/16 11:38 Laboratory Results 09/18/16 04:53 09/18/16 04:53 09/17/16 09/18/16 09/19/16 05:59 05:59 05:59 Intake Total 1350 400 Output Total 1000 Balance 1350 -600 PT 15.0 SEC (12.0-15.0) 09/15/16 02:35 INR 1.18 (0.83-1.16) H 09/15/16 02:35 - Physical Exam Constitutional: no apparent distress, appears nourished, No not in pain (right hip) Ears, Nose, Mouth, Throat: hearing normal Cardiovascular: regular rate and rhythym Respiratory: no respiratory distress, reduced air movement (throughout both lungs/ poor cough effort) Gastrointestinal: normoactive bowel sounds Skin: warm Musculoskeletal: generalized weakness Neurologic: AAOx3 Psychiatric: interacting appropriately ICD10 Worksheet Patient Problems: Problems Problem Status Onset COPD exacerbation Acute Hip fracture Acute CHF - Congestive heart failure Active
[2016-09-18] MEDS: ACETAMINOPHEN 325 MG TAB PO PRN (14:32)
[2016-09-18] MEDS: ACETYLCYSTEINE 10% 30 ML VIAL IH SCH ×2 (15:06→22:34)
--- NOTE | 2016-09-18 15:56 | GCON ---
[f rep st] CONSULTATION STYLE ADVISOR CONSULTATION REASON FOR CONSULTATION: COPD, mucus plugging. HISTORY: The patient is a very pleasant 80-year-old white male with extensive past medical history including bipolar disorder, peripheral vascular disease, hypertension, chronic obstructive pulmonary disease, coronary artery disease, valvular heart disease, hyperlipidemia, GI bleed, and history of DVT and PE. He was admitted after suffering a mechanical fall, requiring a right trochanteric femor al nail. He has done well postoperatively however, began requiring more increasing amounts of oxyge n. A CT angiogram of the chest was performed, which did not show a pulmonary embolus; however, it d id show extensive peripheral mucous plugging in the lower lobes with some patchy bibasilar consolida tion. On discussion with the patient, he states overall he is feeling quite well. He states the pa in from his hip his improving. He does admit to a cough that is nonproductive at this time. He den ies any chest pain, pleuritic-type chest pain, or angina equivalent. He is slightly more breathless . PAST MEDICAL HISTORY: Again, significant for chronic obstructive pulmonary disease, chronic renal i nsufficiency, hyperlipidemia, peripheral vascular disease, DVT and PE, bipolar disorder, valvular he art disease, and coronary artery disease. PAST SURGICAL HISTORY: He has had a 3-vessel coronary bypass graft, knee replacement, and a fem-fem bypass. SOCIAL HISTORY: 50+ pack-year smoker and continues to smoke. No significant alcohol use. He resid es in assisted living. He has good family support. MEDICATIONS: At home include valacyclovir, sertraline, Protonix, multivitamin, melatonin, Imdur, Vi codin, Lasix, Plavix, Coreg, atorvastatin, aspirin, Tylenol. ALLERGIES: Levaquin. PHYSICAL EXAM: VITAL SIGNS: Blood pressure is 119/59, pulse 64, respirations 20, temperature 36.6, oxygen saturation 91% on 2.5 L. GENERAL: He is a thin, but well-developed,elderly white male, who is resting comfortably on nasal cannula oxygen. HEENT: Eyes are PERRLA, EOMI. Throat shows no inge thema or tonsillar hypertrophy. NECK: Supple. There is no cervical adenopathy. HEART: Regular r ate and rhythm with a 3/6 systolic murmur left sternal border without radiation. LUNGS: Diminished breath sounds. Significant prolongation expiratory phase. There are bibasilar rhonchi. ABDOMEN: Soft, nontender. Bowel sounds are present. EXTREMITIES: No clubbing, cyanosis, or edema. LABORATORIES: White count 12, hemoglobin 12, hematocrit 37, platelet count is 310. Sodium 134, pota ssium 4.4, chloride 108, CO2 is 17, BUN 29, creatinine 1.2, glucose is 93. IMAGING: Again, CT scan of the chest shows no PE, but extensive mucus plugging in the lower lobes a nd some evidence of consolidation, as well as central lobular emphysema. IMPRESSION: 1. Respiratory failure. 2. Extensive mucous plugging. 3. Chronic obstructive pulmonary disease with acute exacerbation. 4. Pneumonia. 5. Status post hip fracture. 6. Coronary artery disease. 7. Bipolar disorder. 8. Peripheral vascular disease. RECOMMENDATIONS: 1. Agree with nebulizers using both albuterol and Atrovent. 2. Agree with current antibiotic coverage. 3. IV steroids using Solu-Medrol 40 mg IV q.6 hours. 4. Aggressive pulmonary toilet to this regard. Will start patient on Mucomyst nebs, as well as Bailey pella. If this does not improve his respiratory condition, will consider starting a vest. Thank you very much for allowing me to participate in the care of this patient. Will follow along w argelia thornton. /[id number]/MODL
[2016-09-18] MEDS: predniSONE 20 MG TAB PO SCH (17:08)
[2016-09-18] MEDS: TAMSULOSIN HCL 0.4 MG CAP PO SCH (18:31)
[2016-09-18] MEDS: QUEtiapine FUMARATE 300 MG TAB PO SCH (20:45)
[2016-09-18] MEDS: MELATONIN 3 MG TAB PO SCH (21:55)
[2016-09-19] MEDS: IPRATROPIUM/ALBUTEROL 3 ML DEYVIAL IH SCH ×4 (05:19→21:29)
[2016-09-19] MEDS: ACETYLCYSTEINE 10% 30 ML VIAL IH SCH ×4 (05:19→21:29)
[2016-09-19 05:37] LABS: MAGNESIUM 2.2 mg/dL (1.6-2.3); POTASSIUM 4.6 mEq/L (3.5-5.2)
[2016-09-19] MEDS: AZITHROMYCIN IV 500 MG in D5W 250 ML IV SCH (06:00)
[2016-09-19] MEDS: CARVEDILOL 6.25 MG TAB PO SCH ×2 (09:50→18:36)
[2016-09-19] MEDS: CLOPIDOGREL BISULFATE 75 MG TAB PO SCH (09:50)
[2016-09-19] MEDS: ATORVASTATIN CALCIUM 20 MG TAB PO SCH (09:50)
[2016-09-19] MEDS: ALLOPURINOL 100 MG TAB PO SCH (09:50)
[2016-09-19] MEDS: TAMSULOSIN HCL 0.4 MG CAP PO SCH (09:51)
[2016-09-19] MEDS: SERTRALINE HCL 25 MG TAB PO SCH (09:51)
[2016-09-19] MEDS: predniSONE 20 MG TAB PO SCH (09:51)
[2016-09-19] MEDS: guaiFENesin 600 MG TAB.ER PO SCH ×2 (09:54→22:35)
[2016-09-19] MEDS: ENOXAPARIN 40 MG/0.4 ML SYR SC SCH (09:55)
[2016-09-19] MEDS: oxyCODONE IR 5 MG TAB PO PRN (11:41)
--- NOTE | 2016-09-19 12:31 | PDINTPN ---
Railroad Car Inspector Progress Note Assessment/Plan: Assessment: * COPD with acute exac-improved * Mucus plugging-coughing up sputum now * Pna * S/P Hip fx * CAD * PVD Plan: Continue agressive pulmonary toilet Cont steroids and nebs Cont abx Check CXR in am Subjective: Looks and feels better. Less breathless. Cough improved Objective: Vital Signs Temp Pulse Resp BP Pulse Ox 36.4 C 65 14 139/80 H 94 09/19/16 07:58 09/19/16 10:06 09/19/16 10:06 09/19/16 07:58 09/19/16 10:06 Laboratory Results 09/18/16 04:53 09/19/16 04:54 09/18/16 09/19/16 09/20/16 05:59 05:59 05:59 Intake Total 1350 1750 Output Total 2150 Balance 1350 -400 PT 15.0 SEC (12.0-15.0) 09/15/16 02:35 INR 1.18 (0.83-1.16) H 09/15/16 02:35 Physical Exam - Physical Exam General Appearance: WD/WN, alert, no apparent distress EENT: PERRL/EOMI, normal ENT inspection Neck: non-tender, full range of motion, supple, normal inspection Respiratory: rhonchi (few), prolonged expiration, No respiratory distress, No wheezing Cardiac/Chest: normal peripheral pulses, regular rate, rhythm, systolic murmur Peripheral Pulses: 2+: carotid (R), carotid (L), femoral (R), femoral (L), dorsalis-pedis (R), dorsalis-pedis (L) Abdomen: normal bowel sounds, non-tender, soft Male Genitalia: deferred Rectal: deferred Skin: normal color, warm/dry Extremities: normal range of motion, non-tender, normal inspection, normal capillary refill Neuro/Psych: alert ICD10 Worksheet Patient Problems: Problems Problem Status Onset COPD exacerbation Acute Hip fracture Acute CHF - Congestive heart failure Active
--- NOTE | 2016-09-19 15:55 | SOAPPROG ---
SOAP Progress Note Assessment/Plan: Assessment: s/p IMN R femur for IT fx POD4 doing well mild pain working with PT he is WBAT rec SNF f/u [facility] 09/28/16 Plan: 09/17/16 09:45 09/17/16 09:46 09/19/16 15:55 Objective: Vital Signs Temp Pulse Resp BP Pulse Ox 36.7 C 54 L 18 118/60 90 L 09/19/16 12:00 09/19/16 12:00 09/19/16 12:00 09/19/16 12:00 09/19/16 12:00 Laboratory Results 09/18/16 04:53 09/19/16 04:54 09/18/16 09/19/16 09/20/16 05:59 05:59 05:59 Intake Total 1350 1750 Output Total 2150 Balance 1350 -400 PT 15.0 SEC (12.0-15.0) 09/15/16 02:35 INR 1.18 (0.83-1.16) H 09/15/16 02:35 ICD10 Worksheet Patient Problems: Problems Problem Status Onset COPD exacerbation Acute Hip fracture Acute CHF - Congestive heart failure Active
--- NOTE | 2016-09-19 17:20 | HOSPPROG ---
Hospitalist Progress Note Assessment/Plan: Patient 80-year-old male who had a mechanical fall at home. He landed on his right hip. Was noted to have an intertrochanteric femur fracture. # R hip fx s/p ORIF with Dr Barcenas # Pneumonia with mucus plugging -cont rocephin/azith, BDs -CTA negative for PE -patient feeling better, now has a productive cough #COPD exacerbation -steroid, nebs # Urinary retention -likely from narcotics/ had to have moe placed -most likely from narcotics -trial of flomax/ he has hx of this # CHF, EF while here normal; mild pleural effusions - cont coreg, no edwin with CKD -echo shows diastolic dysfunction with stable EF # gait instability: PT and OT # CAD s/p cabg; indeterminate trop - likely demand ischemia - plavix restarted - cont statin, BB # hypoK - resolved # CKD - at baseline # gout - allopurinol # vte ppx -Lovenox # plan: not quite ready for dc/ will follow/ appreciate Dr Cevallos's involvement Subjective: Ty is feeling well/ no complaints. Objective: Vital Signs Temp Pulse Resp BP Pulse Ox 36.7 C 60 14 113/56 L 92 09/19/16 12:00 09/19/16 16:34 09/19/16 16:34 09/19/16 16:00 09/19/16 16:34 Laboratory Results 09/18/16 04:53 09/19/16 04:54 09/18/16 09/19/16 09/20/16 05:59 05:59 05:59 Intake Total 1350 1750 Output Total 2150 Balance 1350 -400 PT 15.0 SEC (12.0-15.0) 09/15/16 02:35 INR 1.18 (0.83-1.16) H 09/15/16 02:35 - Physical Exam Constitutional: no apparent distress, appears nourished, not in pain Eyes: PERRL Ears, Nose, Mouth, Throat: hearing normal Cardiovascular: regular rate and rhythym Respiratory: no respiratory distress, reduced air movement Gastrointestinal: normoactive bowel sounds Skin: warm Musculoskeletal: muscular tenderness (in hip area), generalized weakness Neurologic: AAOx3 Psychiatric: interacting appropriately, not anxious ICD10 Worksheet Patient Problems: Problems Problem Status Onset COPD exacerbation Acute Hip fracture Acute CHF - Congestive heart failure Active
[2016-09-19 17:56] LABS: POTASSIUM 4.9 mEq/L (3.5-5.2)
[2016-09-19] MEDS: MELATONIN 3 MG TAB PO SCH (22:35)
[2016-09-19] MEDS: QUEtiapine FUMARATE 300 MG TAB PO SCH (22:35)
[2016-09-20 05:29] LABS: MAGNESIUM 2.4 mg/dL (1.6-2.3); POTASSIUM 4.4 mEq/L (3.5-5.2)
[2016-09-20] MEDS: AZITHROMYCIN IV 500 MG in D5W 250 ML IV SCH (05:49)
[2016-09-20] MEDS: ACETYLCYSTEINE 10% 30 ML VIAL IH SCH ×4 (05:55→21:00)
[2016-09-20] MEDS: IPRATROPIUM/ALBUTEROL 3 ML DEYVIAL IH SCH ×4 (05:55→21:00)
[2016-09-20] MEDS: CLOPIDOGREL BISULFATE 75 MG TAB PO SCH (08:48)
[2016-09-20] MEDS: predniSONE 20 MG TAB PO SCH (08:48)
[2016-09-20] MEDS: ALLOPURINOL 100 MG TAB PO SCH (08:48)
[2016-09-20] MEDS: SERTRALINE HCL 25 MG TAB PO SCH (08:48)
[2016-09-20] MEDS: CARVEDILOL 6.25 MG TAB PO SCH ×2 (08:48→17:47)
[2016-09-20] MEDS: guaiFENesin 600 MG TAB.ER PO SCH ×2 (08:48→20:28)
[2016-09-20] MEDS: TAMSULOSIN HCL 0.4 MG CAP PO SCH (08:48)
[2016-09-20] MEDS: ATORVASTATIN CALCIUM 20 MG TAB PO SCH (08:49)
[2016-09-20] MEDS: ENOXAPARIN 40 MG/0.4 ML SYR SC SCH (08:49)
[2016-09-20] MEDS: oxyCODONE IR 5 MG TAB PO PRN ×2 (11:22→20:28)
--- NOTE | 2016-09-20 14:58 | HOSPPROG ---
Hospitalist Progress Note Assessment/Plan: Patient 80-year-old male who had a mechanical fall at home. He landed on his right hip. Was noted to have an intertrochanteric femur fracture. # R hip fx s/p ORIF with Dr Barcenas # Pneumonia with mucus plugging -cont rocephin/azith, -CTA negative for PE -chest xray shows bilateral sm effusions/mod consolidation pna in left lower lobe #COPD exacerbation -steroid, nebs # Urinary retention -likely from narcotics/ resolved with initiation of Flomax # CHF, EF while here normal; mild pleural effusions - cont coreg, no edwin with CKD - echo shows diastolic dysfunction with stable EF # gait instability: PT and OT # CAD s/p cabg; indeterminate trop - likely demand ischemia - plavix restarted - cont statin, BB # hypoK - resolved # CKD - at baseline # gout - allopurinol # vte ppx -Lovenox # plan: slow improvement/ hopefully, ready for dc in next 1-2 days Subjective: Ty said hip pain is ongoing, but manageable, still short of breath , but better. Objective: Vital Signs Temp Pulse Resp BP Pulse Ox 36.5 C 62 16 130/60 H 93 09/20/16 11:35 09/20/16 12:05 09/20/16 12:05 09/20/16 11:35 09/20/16 12:05 Microbiology 09/15/16 03:25 Blood Culture - Final Blood 09/15/16 03:40 Blood Culture - Final Blood Laboratory Results 09/18/16 04:53 09/20/16 04:51 09/19/16 09/20/16 09/21/16 05:59 05:59 05:59 Intake Total 1750 1350 500 Output Total 2150 1100 Balance -400 1350 -600 PT 15.0 SEC (12.0-15.0) 09/15/16 02:35 INR 1.18 (0.83-1.16) H 09/15/16 02:35 - Physical Exam Constitutional: chronically ill appearing Eyes: PERRL Ears, Nose, Mouth, Throat: hearing normal Cardiovascular: regular rate and rhythym, bradycardia Respiratory: no respiratory distress, reduced air movement (bibasilar) Gastrointestinal: normoactive bowel sounds Skin: warm, No normal color (pale) ICD10 Worksheet Patient Problems: Problems Problem Status Onset COPD exacerbation Acute Hip fracture Acute CHF - Congestive heart failure Active
[2016-09-20] MEDS: MELATONIN 3 MG TAB PO SCH (20:28)
[2016-09-20] MEDS: QUEtiapine FUMARATE 300 MG TAB PO SCH (20:28)
[2016-09-21] MEDS: IPRATROPIUM/ALBUTEROL 3 ML DEYVIAL IH SCH ×4 (03:19→20:56)
[2016-09-21] MEDS: ACETYLCYSTEINE 10% 30 ML VIAL IH SCH ×4 (03:22→20:56)
[2016-09-21 05:42] LABS: ANION GAP 8 mEq/L (8-16); CALCIUM 8.7 mg/dL (8.5-10.4); CARBON DIOXIDE 21 mEq/l (22-31); CHLORIDE 108 mEq/L (97-110); CREATININE 1.2 mg/dL (0.7-1.3); GLOMERULAR FILTRATION RATE 58; GLUCOSE 90 mg/dL (70-100); POTASSIUM 4.5 mEq/L (3.5-5.2); SODIUM 137 mEq/L (134-144)
[2016-09-21] MEDS: AZITHROMYCIN IV 500 MG in D5W 250 ML IV SCH (06:21)
[2016-09-21] MEDS: CARVEDILOL 6.25 MG TAB PO SCH ×2 (08:21→17:19)
[2016-09-21] MEDS: CLOPIDOGREL BISULFATE 75 MG TAB PO SCH (08:21)
[2016-09-21] MEDS: guaiFENesin 600 MG TAB.ER PO SCH ×2 (08:22→20:50)
[2016-09-21] MEDS: ALLOPURINOL 100 MG TAB PO SCH (08:22)
[2016-09-21] MEDS: SERTRALINE HCL 25 MG TAB PO SCH (08:22)
[2016-09-21] MEDS: TAMSULOSIN HCL 0.4 MG CAP PO SCH (08:22)
[2016-09-21] MEDS: ATORVASTATIN CALCIUM 20 MG TAB PO SCH (08:22)
[2016-09-21] MEDS: predniSONE 20 MG TAB PO SCH (08:22)
[2016-09-21] MEDS: ENOXAPARIN 40 MG/0.4 ML SYR SC SCH (08:23)
[2016-09-21] MEDS: oxyCODONE IR 5 MG TAB PO PRN ×2 (11:18→17:20)
--- NOTE | 2016-09-21 14:27 | HOSPPROG ---
Hospitalist Progress Note Assessment/Plan: Patient 80-year-old male who had a mechanical fall at home. He landed on his right hip. Was noted to have an intertrochanteric femur fracture. This is my first encounter with the pt. Chart reviewed. # R hip fx s/p ORIF with Dr Barcenas POD #6 # Pneumonia with mucus plugging -cont rocephin/azith, -CTA negative for PE -chest xray shows bilateral sm effusions/mod consolidation pna in left lower lobe - improved today -reviewed with Dr Cevallos -CXR personally reviewed #COPD exacerbation -steroid, nebs # Urinary retention -likely from narcotics/ resolved with initiation of Flomax # CHF, EF while here normal; mild pleural effusions - cont coreg, no edwin with CKD - echo shows diastolic dysfunction with stable EF # gait instability: PT and OT # CAD s/p cabg; indeterminate trop - likely demand ischemia - plavix restarted - cont statin, BB # hypoK - resolved # CKD - at baseline # gout - allopurinol # vte ppx -Lovenox # plan: slow improvement/ hopefully, ready for dc in next 1-2 days D/W daughter Bernice, will DC to in am if conts to be stable. Subjective: Feels tired today. Breathing better. Coughing less. No pain. Objective: Vital Signs Temp Pulse Resp BP Pulse Ox 36.6 C 61 21 H 129/99 H 89 L 09/21/16 08:03 09/21/16 11:24 09/21/16 11:24 09/21/16 11:24 09/21/16 13:59 Laboratory Results 09/18/16 04:53 09/21/16 04:55 09/20/16 09/21/16 09/22/16 05:59 05:59 05:59 Intake Total 1350 700 Output Total 1200 Balance 1350 -500 PT 15.0 SEC (12.0-15.0) 09/15/16 02:35 INR 1.18 (0.83-1.16) H 09/15/16 02:35 - Physical Exam Constitutional: no apparent distress, appears nourished, not in pain Eyes: PERRL, anicteric sclera, EOMI Ears, Nose, Mouth, Throat: moist mucous membranes, hearing normal, ears appear normal Cardiovascular: No JVD, No tachycardia, No edema Respiratory: no respiratory distress, no rales or rhonchi, reduced air movement Gastrointestinal: No tenderness, No ascites, No guarding Skin: warm, normal color, No erythema Musculoskeletal: no joint effusions, pain with ROM, muscular tenderness, generalized weakness Neurologic: AAOx3 Psychiatric: interacting appropriately, not anxious, not encephalopathic ICD10 Worksheet Patient Problems: Problems Problem Status Onset CHF - Congestive heart failure Active COPD exacerbation Acute Hip fracture Acute
--- NOTE | 2016-09-21 14:43 | PDINTPN ---
[employer] Progress Note Assessment/Plan: Assessment: * COPD with acute exac-markedly better * Mucus plugging-coughing up sputum now * Pna * S/P Hip fx * CAD * PVD Plan: Continue agressive pulmonary toilet Cont steroids and nebs Cont abx Discharge soon 09/21/16 14:41 Subjective: Breathing easier. Objective: Vital Signs Temp Pulse Resp BP Pulse Ox 36.6 C 61 21 H 129/99 H 89 L 09/21/16 08:03 09/21/16 11:24 09/21/16 11:24 09/21/16 11:24 09/21/16 13:59 Laboratory Results 09/18/16 04:53 09/21/16 04:55 09/20/16 09/21/16 09/22/16 05:59 05:59 05:59 Intake Total 1350 700 Output Total 1200 Balance 1350 -500 PT 15.0 SEC (12.0-15.0) 09/15/16 02:35 INR 1.18 (0.83-1.16) H 09/15/16 02:35 Physical Exam - Physical Exam General Appearance: WD/WN, alert, no apparent distress EENT: PERRL/EOMI, normal ENT inspection Neck: non-tender, full range of motion, supple Respiratory: rhonchi (few), prolonged expiration, No respiratory distress, No wheezing Cardiac/Chest: normal peripheral pulses, regular rate, rhythm, systolic murmur Abdomen: normal bowel sounds, non-tender, soft Male Genitalia: deferred Rectal: deferred Skin: normal color, warm/dry ICD10 Worksheet Patient Problems: Problems Problem Status Onset COPD exacerbation Acute Hip fracture Acute CHF - Congestive heart failure Active
[2016-09-21] MEDS: QUEtiapine FUMARATE 300 MG TAB PO SCH (20:50)
[2016-09-21] MEDS: MELATONIN 3 MG TAB PO SCH (20:51)
[2016-09-22] MEDS: AZITHROMYCIN IV 500 MG in D5W 250 ML IV SCH (05:36)
[2016-09-22] MEDS: IPRATROPIUM/ALBUTEROL 3 ML DEYVIAL IH SCH ×2 (05:54→11:50)
[2016-09-22] MEDS: ACETYLCYSTEINE 10% 30 ML VIAL IH SCH ×2 (05:54→11:50)
[2016-09-22] MEDS: oxyCODONE IR 5 MG TAB PO PRN ×2 (06:04→09:56)
[2016-09-22] MEDS: ATORVASTATIN CALCIUM 20 MG TAB PO SCH (08:06)
[2016-09-22] MEDS: ENOXAPARIN 40 MG/0.4 ML SYR SC SCH (08:06)
[2016-09-22] MEDS: guaiFENesin 600 MG TAB.ER PO SCH (08:08)
[2016-09-22] MEDS: CLOPIDOGREL BISULFATE 75 MG TAB PO SCH (08:09)
[2016-09-22] MEDS: CARVEDILOL 6.25 MG TAB PO SCH (08:09)
[2016-09-22] MEDS: SERTRALINE HCL 25 MG TAB PO SCH (08:12)
[2016-09-22] MEDS: TAMSULOSIN HCL 0.4 MG CAP PO SCH (08:12)
[2016-09-22] MEDS: predniSONE 20 MG TAB PO SCH (08:12)
[2016-09-22] MEDS: ALLOPURINOL 100 MG TAB PO SCH (08:14)
[2016-09-22 08:16] VITALS: BP 127/54
[2016-09-22 08:19] VITALS: TEMP 97.6
[2016-09-22] MEDS ORDERED: LACTULOSE 20 GM/30 ML UDCUP PO PRN (09:24)
[2016-09-22] MEDS ORDERED: BISACODYL 10 MG SUPP PR PRN (09:24)
[2016-09-22] MEDS ORDERED: POLYETHYLENE GLYCOL 3350 17 GM PKT PO SCH (09:30)
[2016-09-22] MEDS ORDERED: SENNOSIDES/DOCUSATE SODIUM TAB PO ONE (09:50)
--- NOTE | 2016-09-22 10:33 | HOSPPROG ---
Hospitalist Progress Note Assessment/Plan: Patient 80-year-old male who had a mechanical fall at home. He landed on his right hip. Was noted to have an intertrochanteric femur fracture. # R hip fx s/p ORIF with Dr Barcenas # Pneumonia with mucus plugging -cont rocephin/azith, -CTA negative for PE -chest xray shows bilateral sm effusions/mod consolidation pna in left lower lobe -reviewed care with Dr Cevallos/ cont abx for 5 more days #COPD exacerbation -steroid, nebs/will wean steroids -on less oxygen today # Urinary retention -likely from narcotics/ resolved with initiation of Flomax # CHF, EF while here normal; mild pleural effusions - cont coreg, no edwin with CKD - echo shows diastolic dysfunction with stable EF # gait instability: PT and OT # CAD s/p cabg; indeterminate trop - likely demand ischemia - plavix restarted - cont statin, BB # hypoK - resolved # CKD - at baseline # gout - allopurinol # vte ppx -Lovenox # plan: dc today Subjective: Ty is feeling slowly better/ hip pain improving. Objective: Vital Signs Temp Pulse Resp BP Pulse Ox 36.4 C 51 L 16 127/54 H 93 09/22/16 08:18 09/22/16 08:18 09/22/16 08:18 09/22/16 08:18 09/22/16 08:18 Laboratory Results 09/18/16 04:53 09/21/16 04:55 09/21/16 09/22/16 09/23/16 05:59 05:59 05:59 Intake Total 700 300 Output Total 1200 1100 Balance -500 -800 PT 15.0 SEC (12.0-15.0) 09/15/16 02:35 INR 1.18 (0.83-1.16) H 09/15/16 02:35 - Physical Exam Constitutional: no apparent distress, appears nourished, not in pain Eyes: PERRL Ears, Nose, Mouth, Throat: hearing normal Cardiovascular: regular rate and rhythym Respiratory: no respiratory distress, reduced air movement, other (lungs clear, decreased/ loose cough) Gastrointestinal: normoactive bowel sounds Skin: warm Musculoskeletal: generalized weakness Neurologic: AAOx3 Psychiatric: interacting appropriately ICD10 Worksheet Patient Problems: Problems Problem Status Onset COPD exacerbation Acute Hip fracture Acute CHF - Congestive heart failure Active
--- NOTE | 2016-09-22 11:03 | PDIAF ---
- Diagnosis Diagnosis: r hip fx s/p ORIF/ pna, copd Code Status: Full Code - Medication Management Discharge Medications: Medications to Continue on Transfer Melatonin [Melatonin 3 MG (*)] 3 mg PO HS 01/10/13 [Last Taken 09/14/16] QUETIAPINE FUMARATE [SEROQUEL XR] 300 mg PO HS 01/10/13 [Last Taken 09/14/16] Sertraline HCl [Zoloft 25mg (*)] 25 mg PO DAILY 01/10/13 [Last Taken 09/14/16] Hydrocodone Bit/Acetaminophen [Vicodin 5/500] 1 tab PO Q6 PRN 01/17/13 [Last Taken 7 Days Ago] Allopurinol [Allopurinol 100 MG (*)] 100 mg PO DAILY 09/15/16 [Last Taken ] Atorvastatin Calcium [Lipitor 20 mg (*)] 20 mg PO DAILY 09/15/16 [Last Taken 03/25] Carvedilol [Coreg (*)] 6.25 mg PO BIDMEAL 09/15/16 [Last Taken 09/14/16 18:00] Clopidogrel Bisulfate [Plavix (*)] 75 mg PO DAILY 09/15/16 [Last Taken 09/14/16] Azithromycin 250 mg PO DAILY #5 tablet 09/22/16 [Last Taken Unknown] Cefuroxime Axetil [Ceftin (*)] 250 mg PO BID #10 tab 09/22/16 [Last Taken Unknown] Enoxaparin [Lovenox 40 MG (*)] 40 mg SC DAILY #0 syr 09/22/16 [Last Taken Unknown] Polyethylene Glycol 3350 [Miralax 17 gm (*)] 17 gm PO DAILY #0 pkt 09/22/16 [ Last Taken Unknown] Sennosides/Docusate Sodium [Senokot-S] 1 - 2 tab PO BID #0 tab 09/22/16 [Last Taken Unknown] Tamsulosin HCl [Flomax 0.4 MG (*)] 0.4 mg PO DAILY #0 cap 09/22/16 [Last Taken Unknown] guaiFENesin [Mucinex 600 MG (*)] 1,200 mg PO BID #0 tab.er 09/22/16 [Last Taken Unknown] oxyCODONE IR [Oxycodone Ir (*)] 5 - 10 mg PO Q3HRS PRN #0 tab 09/22/16 [Last Taken Unknown] predniSONE 40 mg PO DAILY #0 tablet 09/22/16 [Last Taken Unknown] Discharge Medications: Refer to the Discharge Home Medication list for PRN reason. PICC Care - Routine: N/A - Orders Services needed: Physical Therapy, Occupational Therapy Oxygen: 2 liters Diet Recommendation: no restrictions on diet Diet Texture: Regular Texture Diet Activity/Weight Bearing Restrictions: wbat Additional: continue antibiotics for 5 more days. Continue prednisone 40 mg x 2 more days, then decrease to 20 mg x 4 days, then 10 mg x 4 days, then stop/ take with food. Continue Lovenox x 7 more days. F/u with Dr Barcenas / orthopedic physician. F/u with Dr Cevallos/ pulmologist in the next 2 - 3 weeks. Note, flomax is a need medication for Ty/ he should further discuss this with his PCP. - Labs/Radiology BMP Date: 09/25/16 CBC Date: 09/25/16 Call or Fax Lab and Imaging Results to: repeat chest xray in 6 weeks to be sure resolution of pneumonia - Follow Up Care Current Providers and Referrals: Zachary Barcenas MD [Medical Doctor] - 09/28/16 Patient,NotPresent [Unknown] - As per Instructions Mitch Cevallos MD [Medical Doctor] -
[2016-09-22 12:04] VITALS: PULSE 54; RESP 12; O2SAT 95
--- NOTE | 2016-09-22 19:03 | GDS ---
[f rep st] DISCHARGE SUMMARY DISCHARGE DIAGNOSES: 1. Right hip fracture, status post nail to the right femur. 2. Pneumonia with mucous plugging. 3. Chronic obstructive pulmonary disease exacerbation. 4. Urinary retention. 5. Congestive heart failure. No acute exacerbation. 6. Gait instability. 7. Coronary artery disease with a history of coronary artery bypass grafting. 8. Hypokalemia. 9. Chronic kidney disease. 10. Gout. CONSULTATIONS: 1. Dr. Rikki Barcenas. 2. Dr. Diego Cevallos. HISTORY: The patient is an 80-year-old man who was brought in by ambulance after suffering a mechanical fall at home. He stubbed his toe and proceeded to fall, landing on his right hip pain. The pain began immediately. He was noted to have an intertrochanteric femur fracture. He was seen and evaluated by Dr. Barcenas and had surgery on September 15. He recovered well from his surgery, but during his stay he developed ongoing hypoxemia. He had a CTA performed, which showed no evidence of PE. He had extensive peripheral mucous plugging in the bilateral lower lobes, left worse than the right, with patchy bibasilar consolidation, and noted there was suspicion for a left basilar pneumonia and right basilar atelectasis. He had minimal interstitial edema, trace bilateral pleural effusions. 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 He was seen and evaluated by Dr. Cevallos. He was treated with nebulizers and steroids. He improved throughout his stay. He will further follow up with Dr. Barcenas and Dr. Cevallos in the outpatient setting. HOSPITAL COURSE: 1. Right intertrochanteric femur fracture. He is status post a right trochanteric femoral nail to the right femur. Overall he has done well with surgery. He will be weightbearing as tolerated, and follow up with Dr. Barcenas in the outpatient setting. 2. Pneumonia with mucous plugging. He was treated with Rocephin and azithromycin. He will be on antibiotics for the next 5 days. He had a followup chest x-ray, which showed bilateral small effusions and moderate consolidation in the left lower lobe. 3. Chronic obstructive pulmonary disease exacerbation. Will slowly wean him off the steroids. He is on less oxygen today, had been on 5 L, and now down to 2 L. 4. Urinary retention. This resolved with initiation of Flomax. 5. Congestive heart failure. He had an echocardiogram, which was stable. It showed diastolic dysfunction. He is on Coreg. No CHRISTOPHER inhibitor because of his chronic kidney disease. 6. Gait instability. PT and OT. 7. Coronary artery disease, status post coronary artery bypass grafting in the past. He had indeterminate troponins. This is likely demand ischemia. He is on Plavix and statin, as well as beta-alfredo therapy. 8. Hypokalemia, resolved. 9. Chronic kidney disease, at his baseline. 10. Gout, on allopurinol. PENDING LABS AND TESTS: None. CONDITION AT DISCHARGE: Stable. Blood pressure is 127/54, O2 sats on 2 L are 92%, respiratory rate is 16, pulse is 51, temperature 36.4 Celsius. MEDICATIONS AT DISCHARGE: Please see the EMR. DISCHARGE INSTRUCTIONS: 1. Follow up with Dr. Cevallos. 2. Follow up with Dr. Barcenas. 3. If he develops fever, chills, chest pain, or shortness of breath to return to the ER. Greater than 30 minutes discharging and coordinating care. /[id number]/MODL MTDD
[2016-09-22] MEDS ORDERED: SENNOSIDES/DOCUSATE SODIUM TAB PO SCH (21:00)
== END 2016-09-22 14:00 | DRG 480 ==
LOC: EDUNIT# → F2W 14:03 → F3N 09-16 13:56
PROVIDERS: ADMIT Internal Medicine; ATTEND Hospitalist
PROC: 0QS634Z Reposition Right Upper Femur with Internal Fixation Device, Percutaneous Approach (ICD-10-PCS; principal; 2016-09-15 18:15)
DX: S72.141A Displaced intertrochanteric fracture of right femur, initial encounter for closed fracture (principal); W01.0XXA Fall on same level from slipping, tripping and stumbling without subsequent striking against object, initial encounter; Y92.019 Unspecified place in single-family (private) house as the place of occurrence of the external cause; Y99.8 Other external cause status; J44.1 Chronic obstructive pulmonary disease with (acute) exacerbation; J98.09 Other diseases of bronchus, not elsewhere classified; F17.210 Nicotine dependence, cigarettes, uncomplicated; J18.0 Bronchopneumonia, unspecified organism; J96.01 Acute respiratory failure with hypoxia; R33.9 Retention of urine, unspecified; T40.605A Adverse effect of unspecified narcotics, initial encounter; E87.6 Hypokalemia; I25.10 Atherosclerotic heart disease of native coronary artery without angina pectoris; I25.2 Old myocardial infarction; Z95.1 Presence of aortocoronary bypass graft; I34.0 Nonrheumatic mitral (valve) insufficiency; I36.1 Nonrheumatic tricuspid (valve) insufficiency; I27.2 Other secondary pulmonary hypertension; I13.0 Hypertensive heart and chronic kidney disease with heart failure and stage 1 through stage 4 chronic kidney disease, or unspecified chronic kidney disease; I50.32 Chronic diastolic (congestive) heart failure; N18.9 Chronic kidney disease, unspecified; I65.02 Occlusion and stenosis of left vertebral artery; M10.9 Gout, unspecified; Z98.62 Peripheral vascular angioplasty status; Z96.659 Presence of unspecified artificial knee joint; Z86.711 Personal history of pulmonary embolism; Z86.718 Personal history of other venous thrombosis and embolism; F31.9 Bipolar disorder, unspecified; E78.5 Hyperlipidemia, unspecified
CPT/HCPCS: 97116-GP; 97162-GP; 97165-GO; 97530-GP; 97535-GO; C1713; C1769; G8978-GP-CK; G8979-GP-CI; G8987-GO-CJ; G8988-GO-CI; J0456; J0690; J0696; J1100; J1650; J1956; J2001; J2250; J2405; J2704; J3010; Q9967